=== PATIENT | male | born 1955 | race Caucasian/White ===

== ENCOUNTER 2016-07-20 13:03 | Outpatient (CLI) | payer OTHER | END 2016-07-20 13:04 | disposition home or self-care (01) | DX: G47.30 Sleep apnea, unspecified (principal); R06.83 Snoring ==

== ENCOUNTER 2016-08-24 19:34 | Outpatient (CLI) | payer OTHER | END 2016-08-24 19:35 | disposition home or self-care (01) | LOC: SC 19:34 | PROVIDERS: ATTEND Internal Medicine Pulmonary Disease | DX: G47.33 Obstructive sleep apnea (adult) (pediatric) (principal); G47.61 Periodic limb movement disorder; Z68.29 Body mass index [BMI] 29.0-29.9, adult | CPT/HCPCS: 95810 ==

== ENCOUNTER 2016-08-31 14:06 | Outpatient (CLI) | payer OTHER | END 2016-08-31 14:07 | disposition home or self-care (01) | LOC: SC 14:06 | PROVIDERS: ATTEND Nurse Practitioner Family | DX: G47.33 Obstructive sleep apnea (adult) (pediatric) (principal) | CPT/HCPCS: 99212; 99214 ==

== ENCOUNTER 2016-10-14 13:13 | Outpatient (CLI) | payer OTHER | END 2016-10-14 13:14 | disposition home or self-care (01) | LOC: SC 13:13 | PROVIDERS: ATTEND Nurse Practitioner Family | DX: G47.33 Obstructive sleep apnea (adult) (pediatric) (principal) | CPT/HCPCS: 99212; 99214 ==

== ENCOUNTER 2016-10-21 08:20 | Outpatient (CLI) | payer OTHER ==
[2016-10-21 13:34] LABS: BASOPHILS % (AUTO) 0.4 %; EOSINOPHILS # (AUTO) 0.1 10^3/uL (0.0-0.7); EOSINOPHILS % (AUTO) 1.4 %; HCT - HEMATOCRIT 43.3 % (42.0-52.0); HGB - HEMOGLOBIN 14.8 g/dL (14.0-18.0); LYMPHOCYTES # (AUTO) 1.7 10^3/uL (1.5-3.5); LYMPHOCYTES % (AUTO) 37.2 %; MEAN CORPUSCULAR HEMOGLOBIN 32.3 pg (27.0-31.0); MEAN CORPUSCULAR HGB CONC 34.2 g/dL (32.0-36.0); MEAN CORPUSCULAR VOLUME 94.5 fL (80.0-94.0); MONOCYTES # (AUTO) 0.4 10^3/uL (0.0-1.0); NEUTROPHILS # (AUTO) 2.4 10^3/uL (1.5-6.6); NUCLEATED RED BLOOD CELLS AUTO 0.1 /100WBC; RED BLOOD COUNT 4.59 10^6/uL (4.70-6.10); RED CELL DISTRIBUTION WIDTH 12.7 % (12.0-15.0); UNCORRECTED WHITE BLOOD COUNT 4.6 x10^3/uL; WHITE BLOOD COUNT 4.6 x10^3/uL (4.8-10.8)
[2016-10-21 14:01] LABS: ALBUMIN/GLOBULIN RATIO 1.8 (1.0-2.2); BILIRUBIN,TOTAL 0.8 mg/dL (0.2-1.0); BUN - BLOOD UREA NITROGEN 13 mg/dL (6-20); CALCIUM 9.2 mg/dL (8.5-10.3); CARBON DIOXIDE - CO2 30 mmol/L (21-32); CHLORIDE 100 mmol/L (101-111); CHOL/HDL RATIO 3.2 (<5.0); CHOLESTEROL 132 mg/dL; CREATININE 0.8 mg/dL (0.6-1.2); GFR - MDRD 98 (>89); GLUCOSE 97 mg/dL (70-100); HDL CHOLESTEROL 41 mg/dL; HEMOGLOBIN A1C 0.56 g/dL; LDL/HDL RATIO 1.5 (<3.6); POTASSIUM 3.9 mmol/L (3.5-5.0); SODIUM 135 mmol/L (135-145); TOTAL PROTEIN 7.3 g/dL (6.7-8.2); TRIGLYCERIDES 147 mg/dL; VLDL CHOLESTEROL 29 mg/dL
== END 2016-10-21 08:21 | disposition home or self-care (01) ==
LOC: LAB.R 08:20
PROVIDERS: ATTEND Nurse Practitioner Primary Care
DX: Z79.899 Other long term (current) drug therapy (principal); R73.09 Other abnormal glucose; C85.80 Other specified types of non-Hodgkin lymphoma, unspecified site; E78.1 Pure hyperglyceridemia
CPT/HCPCS: 80053; 80061; 83036; 84153; 85025

== ENCOUNTER 2017-01-04 13:15 | Outpatient (CLI) | payer OTHER | END 2017-01-04 13:16 | disposition home or self-care (01) | LOC: SC 13:15 | PROVIDERS: ATTEND Nurse Practitioner Family | DX: G47.33 Obstructive sleep apnea (adult) (pediatric) (principal) | CPT/HCPCS: 99212; 99214 ==

== ENCOUNTER 2017-07-26 15:15 | Outpatient (CLI) | payer OTHER | END 2017-07-26 15:16 | disposition home or self-care (01) | LOC: SC 15:15 | PROVIDERS: ATTEND Nurse Practitioner Family | DX: G47.33 Obstructive sleep apnea (adult) (pediatric) (principal) | CPT/HCPCS: 99212; 99213 ==

== ENCOUNTER 2017-10-26 09:05 | Outpatient (CLI) | payer OTHER ==
[2017-10-26 15:07] LABS: BASOPHILS % (AUTO) 0.2 %; EOSINOPHILS # (AUTO) 0.1 10^3/uL (0.0-0.7); EOSINOPHILS % (AUTO) 1.4 %; HGB - HEMOGLOBIN 14.6 g/dL (14.0-18.0); LYMPHOCYTES # (AUTO) 1.5 10^3/uL (1.5-3.5); LYMPHOCYTES % (AUTO) 38.2 %; MEAN CORPUSCULAR HEMOGLOBIN 32.3 pg (27.0-31.0); MEAN CORPUSCULAR HGB CONC 33.3 g/dL (32.0-36.0); MEAN CORPUSCULAR VOLUME 96.9 fL (80.0-94.0); MEAN PLATELET VOLUME 8.3 fL (7.4-11.4); MONOCYTES # (AUTO) 0.4 10^3/uL (0.0-1.0); NEUTROPHILS % (AUTO) 50.2 %; PLT - PLATELET COUNT 172 10^3/uL (130-450); RED BLOOD COUNT 4.53 10^6/uL (4.70-6.10); RED CELL DISTRIBUTION WIDTH 12.8 % (12.0-15.0)
[2017-10-26 15:23] LABS: ALBUMIN 4.4 g/dL (3.2-5.5); ALBUMIN/GLOBULIN RATIO 1.5 (1.0-2.2); ALKALINE PHOSPHATASE 73 IU/L (42-121); ALT ALANINE AMINOTRANSFERASE 28 IU/L (10-60); AST ASPARTATE AMINOTRANSFERASE 34 IU/L (10-42); BILIRUBIN,TOTAL 1.2 mg/dL (0.2-1.0); BUN - BLOOD UREA NITROGEN 14 mg/dL (6-20); CALCIUM 9.3 mg/dL (8.5-10.3); CARBON DIOXIDE - CO2 28 mmol/L (21-32); CHLORIDE 100 mmol/L (101-111); CHOL/HDL RATIO 2.2 (<5.0); CHOLESTEROL 111 mg/dL; CREATININE 0.9 mg/dL (0.6-1.2); GFR - MDRD 86 (>89); GLUCOSE 96 mg/dL (70-100); HDL CHOLESTEROL 51 mg/dL; LDL CHOLESTEROL,CALCULATED 47 mg/dL; LDL/HDL RATIO 0.9 (<3.6); SODIUM 137 mmol/L (135-145); TOTAL PROTEIN 7.4 g/dL (6.7-8.2); VLDL CHOLESTEROL 13 mg/dL
[2017-10-26 15:28] LABS: HB2 TOTAL 16.4 g/dL; HEMOGLOBIN A1C 0.58 g/dL; HEMOGLOBIN A1C % 5.4 % (4.6-6.2)
== END 2017-10-26 09:06 | disposition home or self-care (01) ==
LOC: LAB.R 09:05
PROVIDERS: ATTEND Nurse Practitioner Primary Care
DX: E78.1 Pure hyperglyceridemia (principal); R73.01 Impaired fasting glucose; K52.9 Noninfective gastroenteritis and colitis, unspecified; C85.90 Non-Hodgkin lymphoma, unspecified, unspecified site; Z13.29 Encounter for screening for other suspected endocrine disorder; Z79.899 Other long term (current) drug therapy
CPT/HCPCS: 80053; 80061; 83036; 83721; 84443; 85025

== ENCOUNTER 2017-11-01 08:00 | Outpatient (CLI) | payer OTHER | END 2017-11-01 08:01 | disposition home or self-care (01) | LOC: LAB.R 08:00 | PROVIDERS: ATTEND Nurse Practitioner Primary Care | DX: D75.89 Other specified diseases of blood and blood-forming organs (principal) | CPT/HCPCS: 82607; 82746 ==

== ENCOUNTER 2018-08-22 07:43 | Outpatient (CLI) | payer OTHER ==
[2018-08-22 08:04] LABS: BASOPHILS % (AUTO) 0.3 %; EOSINOPHILS # (AUTO) 0.1 10^3/uL (0.0-0.7); EOSINOPHILS % (AUTO) 1.6 %; HGB - HEMOGLOBIN 15.1 g/dL (14.0-18.0); LYMPHOCYTES # (AUTO) 1.7 10^3/uL (1.5-3.5); LYMPHOCYTES % (AUTO) 34.6 %; MEAN CORPUSCULAR HEMOGLOBIN 31.6 pg (27.0-31.0); MEAN CORPUSCULAR HGB CONC 33.2 g/dL (32.0-36.0); MEAN CORPUSCULAR VOLUME 95.2 fL (80.0-94.0); MEAN PLATELET VOLUME 7.6 fL (7.4-11.4); MONOCYTES # (AUTO) 0.4 10^3/uL (0.0-1.0); MONOCYTES % (AUTO) 7.9 %; NEUTROPHILS # (AUTO) 2.7 10^3/uL (1.5-6.6); NEUTROPHILS % (AUTO) 55.6 %; PLT - PLATELET COUNT 170 10^3/uL (130-450); RED BLOOD COUNT 4.77 10^6/uL (4.70-6.10); RED CELL DISTRIBUTION WIDTH 12.6 % (12.0-15.0); WHITE BLOOD COUNT 4.8 x10^3/uL (4.8-10.8)
[2018-08-22 08:19] LABS: ALBUMIN 4.5 g/dL (3.2-5.5); ALBUMIN/GLOBULIN RATIO 1.6 (1.0-2.2); ALKALINE PHOSPHATASE 82 IU/L (42-121); ALT ALANINE AMINOTRANSFERASE 32 IU/L (10-60); AST ASPARTATE AMINOTRANSFERASE 32 IU/L (10-42); BILIRUBIN,TOTAL 1.1 mg/dL (0.2-1.0); BUN - BLOOD UREA NITROGEN 13 mg/dL (6-20); CALCIUM 9.2 mg/dL (8.5-10.3); CARBON DIOXIDE - CO2 29 mmol/L (21-32); CHLORIDE 98 mmol/L (101-111); CHOL/HDL RATIO 3.5 (<5.0); CHOLESTEROL 135 mg/dL; CREATININE 0.8 mg/dL (0.6-1.2); GFR - MDRD 98 (>89); GLUCOSE 113 mg/dL (70-100); HDL CHOLESTEROL 39 mg/dL; LDL CHOLESTEROL,CALCULATED 73 mg/dL; LDL/HDL RATIO 1.9 (<3.6); SODIUM 138 mmol/L (135-145); TOTAL PROTEIN 7.4 g/dL (6.7-8.2); VLDL CHOLESTEROL 23 mg/dL
== END 2018-08-22 07:44 | disposition home or self-care (01) ==
LOC: LAB 07:43
PROVIDERS: ATTEND Internal Medicine
DX: Z00.00 Encounter for general adult medical examination without abnormal findings (principal); E78.5 Hyperlipidemia, unspecified; Z12.5 Encounter for screening for malignant neoplasm of prostate
CPT/HCPCS: 36415; 80053; 80061; 83721; 84153; 84443; 85025

== ENCOUNTER 2018-09-19 11:14 | Outpatient (CLI) | payer OTHER | END 2018-09-19 11:15 | disposition home or self-care (01) | LOC: SC 11:14 | PROVIDERS: ATTEND Nurse Practitioner Family | DX: G47.33 Obstructive sleep apnea (adult) (pediatric) (principal) | CPT/HCPCS: 99212; 99213 ==

== ENCOUNTER 2020-04-09 09:00 | Outpatient (CLI) | payer MEDICARE, BC ==
[2020-04-09 09:16] LABS: BASOPHILS % (AUTO) 0.4 %; EOSINOPHILS # (AUTO) 0.1 10^3/uL (0.0-0.7); EOSINOPHILS % (AUTO) 1.4 %; HGB - HEMOGLOBIN 15.5 g/dL (14.0-18.0); LYMPHOCYTES # (AUTO) 2.1 10^3/uL (1.5-3.5); LYMPHOCYTES % (AUTO) 41.4 %; MEAN CORPUSCULAR HEMOGLOBIN 32.8 pg (27.0-31.0); MEAN CORPUSCULAR HGB CONC 33.1 g/dL (32.0-36.0); MEAN CORPUSCULAR VOLUME 99.2 fL (80.0-94.0); MEAN PLATELET VOLUME 9.2 fL (7.4-11.4); MONOCYTES # (AUTO) 0.4 10^3/uL (0.0-1.0); MONOCYTES % (AUTO) 8.7 %; NEUTROPHILS # (AUTO) 2.4 10^3/uL (1.5-6.6); NEUTROPHILS % (AUTO) 47.9 %; PLT - PLATELET COUNT 179 10^3/uL (130-450); RED BLOOD COUNT 4.72 10^6/uL (4.70-6.10); WHITE BLOOD COUNT 5.1 x10^3/uL (4.8-10.8)
[2020-04-09 09:35] LABS: ALBUMIN 4.9 g/dL (3.2-5.5); ALBUMIN/GLOBULIN RATIO 1.9 (1.0-2.2); ALKALINE PHOSPHATASE 84 IU/L (42-121); ALT ALANINE AMINOTRANSFERASE 31 IU/L (10-60); AST ASPARTATE AMINOTRANSFERASE 28 IU/L (10-42); BILIRUBIN,TOTAL 1.1 mg/dL (0.2-1.0); BUN - BLOOD UREA NITROGEN 13 mg/dL (6-20); CALCIUM 9.4 mg/dL (8.5-10.3); CARBON DIOXIDE - CO2 28 mmol/L (21-32); CHLORIDE 102 mmol/L (101-111); CHOL/HDL RATIO 3.3 (<5.0); CHOLESTEROL 150 mg/dL; CREATININE 0.8 mg/dL (0.6-1.2); GLUCOSE 114 mg/dL (70-100); HDL CHOLESTEROL 46 mg/dL; LDL CHOLESTEROL,CALCULATED 78 mg/dL; LDL/HDL RATIO 1.7 (<3.6); SODIUM 137 mmol/L (135-145); TOTAL PROTEIN 7.5 g/dL (6.7-8.2); VLDL CHOLESTEROL 26 mg/dL
== END 2020-04-09 09:01 | disposition home or self-care (01) ==
LOC: LAB 09:00
PROVIDERS: ATTEND Family Medicine
DX: I10 Essential (primary) hypertension (principal); N40.0 Benign prostatic hyperplasia without lower urinary tract symptoms; E78.5 Hyperlipidemia, unspecified; G47.33 Obstructive sleep apnea (adult) (pediatric); R73.01 Impaired fasting glucose
CPT/HCPCS: 36415; 80053; 80061; 83721; 84153; 84443; 85025

== ENCOUNTER 2020-06-06 09:24 | Outpatient (CLI) | payer MEDICARE, BC ==
[2020-06-06 12:51] LABS: BILIRUBIN,URINE NEGATIVE (NEGATIVE); GLUCOSE, URINE (UA) NEGATIVE (NEGATIVE); KETONES,URINE (UA) NEGATIVE (NEGATIVE); LEUKOCYTE ESTERASE, URINE NEGATIVE (NEGATIVE); NITRITE,URINE NEGATIVE (NEGATIVE); OCCULT BLOOD,URINE SMALL (NEGATIVE); PROTEIN,URINE NEGATIVE (NEGATIVE); UROBILINOGEN,URINE 0.2 (NORMAL) E.U./dL (NORMAL)
[2020-06-06 12:54] LABS: BACTERIA,URINE None Seen /HPF (None Seen); CLARITY,URINE CLEAR (CLEAR); SQUAMOUS EPITHELIAL CELL,UR RARE Squamous (<= Few); WBC,URINE 0-3 /HPF (0-3)
== END 2020-06-06 23:59 | disposition home or self-care (01) ==
LOC: LAB.WCP 09:24
PROVIDERS: ATTEND Family Medicine
DX: R31.9 Hematuria, unspecified (principal); D75.89 Other specified diseases of blood and blood-forming organs; Z86.39 Personal history of other endocrine, nutritional and metabolic disease
CPT/HCPCS: 36415; 81001; 82306; 82607; 82746; 87086

== ENCOUNTER 2020-06-14 16:30 | Outpatient (CLI) | payer MEDICARE, BC ==
--- NOTE | 2020-06-14 17:54 | XRAY Report ---
PROCEDURE: Thoracic Spine 2 View INDICATIONS: BACK PAIN X 3 MONTHS TECHNIQUE: 3 views of the thoracic spine were acquired. COMPARISON: None. FINDINGS: Bones: No fractures or dislocations. No suspicious bony lesions. Visualized ribs are intact. Multil evel disc space narrowing and endplate osteophyte formation is present. Soft tissues: No paravertebr al stripe thickening. IMPRESSION: Multilevel degenerative disc disease. No acute fracture. No osseous lesion. If symptoms and/or clinic al suspicion for pathology continue, further assessment with repeat plain films, or advanced imaging (e.g., CT, MRI, or bone scan) is recommended for further assessment. Reviewed by: Ruy Ingram MD on 06/14/2020 4:52 PM [facility] Approved by: Ruy Ingram MD on 06/14/2020 4:52 PM [facility] Station ID: [id number]
--- NOTE | 2020-06-14 17:56 | Ultrasound Report ---
PROCEDURE: Retroperitoneal INDICATIONS: HEMATURIA TECHNIQUE: Real-time scanning was performed of the retroperitoneal organs, with image documentation. COMPARISON: None. FINDINGS: Right kidney measures 11.3 cm with a renal cortical thickness of 12 mm. Left kidney measures 12.9 cm in length with a renal cortical thickness of 14 mm. No hydronephrosis. Prevoid volume of the urinary bladder is 133 cc. 0 postvoid residual. Prostate is enlarged measuring 43 mm. IMPRESSION: 1. No hydronephrosis. 2. Prostate enlargement. Recommend correlation with PSA values. Reviewed by: Ruy Ingram MD on 06/14/2020 4:55 PM [facility] Approved by: Ruy Ingram MD on 06/14/2020 4:55 PM [facility] Station ID: [id number]
--- NOTE | 2020-06-14 17:57 | XRAY Report ---
PROCEDURE: Lumbar Spine 2 View INDICATIONS: BACK PAIN X 3 MONTHS TECHNIQUE: 2 views of the lumbar spine were acquired. COMPARISON: None. FINDINGS: Bones: 5 [id number] vertebrae are present. There is normal bony alignment. No vertebral body compression fractures. No suspicious bony lesions. Mild multilevel endplate osteophyte formation an d facet hypertrophy throughout the mid and lower lumbar spine. Soft tissues: Overlying bowel gas pattern is normal. No suspicious soft tissue calcifications. IMPRESSION: Degenerative disc and facet disease. No acute fracture. No osseous lesion. If symptoms a nd/or clinical suspicion for pathology continue, further assessment with repeat plain films, or advan jw imaging (e.g., CT, MRI, or bone scan) is recommended for further assessment. Reviewed by: Ruy Ingram MD on 06/14/2020 4:55 PM [facility] Approved by: Ruy Ingram MD on 06/14/2020 4:55 PM [facility] Station ID: [id number]
== END 2020-06-14 16:31 | disposition home or self-care (01) ==
LOC: DI 16:30
PROVIDERS: ATTEND Family Medicine
DX: R31.9 Hematuria, unspecified (principal); N40.0 Benign prostatic hyperplasia without lower urinary tract symptoms; M51.34 Other intervertebral disc degeneration, thoracic region; M47.816 Spondylosis without myelopathy or radiculopathy, lumbar region; M51.36 Other intervertebral disc degeneration, lumbar region

== ENCOUNTER 2020-06-25 07:48 | Outpatient (CLI) | payer MEDICARE, BC ==
[2020-06-25] MEDS ORDERED: IOVERSOL 320 100 ML VIAL IVP ONE ×2 (08:04→09:02)
[2020-06-25 08:17] LABS: CREATININE 0.8 mg/dL (0.6-1.2)
--- NOTE | 2020-06-25 15:06 | CT Report ---
PROCEDURE: IVP INDICATIONS: GROSS HEMATURIA, CHRONIC R FLANK PAIN CONTRAST: IV CONTRAST: Optiray 320 ml: 140 PO CONTRAST: *NO PO CONTRAST TECHNIQUE: After the administration of intravenous contrast, 5 mm thick sections acquired from the diaphragms to the symphysis. 5 mm thick coronal and sagittal reformats were acquired. For radiation dose reducti on, the following was used: automated exposure control, adjustment of mA and/or kV according to remi ent size. COMPARISON: None. FINDINGS: Image quality: Excellent. Lung bases: Lung bases demonstrate mild atelectatic change.. Heart size is normal. Urinary system: Both kidneys are normal in size and enhancement. Contrast-filled renal calyces are normal in morphology. Contrast filled portions of both ureters are normal in caliber. Bladder wall thickness is normal. Solid organs: Liver and spleen are normal in size and enhancement. Gallbladder contains a nonobstru cting punctate calcification in the neck/proximal cystic duct measuring about 3 mm. Gallbladder is ot herwise decompressed. Biliary system is non dilated. Pancreas enhances normally. No adrenal nodule s. Peritoneum and bowel: Slight, nonspecific wall thickening of the cecum. There are a few immediately retrocecal mildly prominent lymph nodes. Bowel loops demonstrate otherwise normal wall thickness and caliber. No free fluid or air. Nodes and vessels: No retroperitoneal or mesenteric adenopathy by size criteria. Aorta and inferior vena cava are normal in size. Abdominal wall: No ventral hernias. Pelvis: No pathologic free pelvic fluid. No inguinal hernias or adenopathy. Minimally enlarged pro state gland. Bones: No suspicious bony lesions. No vertebral body compression fractures. IMPRESSION: 1. No CT evidence of urinary calcifications or obstructive uropathy. 2. Nonobstructive cholelithiasis. 3. Nonspecific cecal wall thickening with adjacent adenopathy. This may be sequelae of infection, inf lammation, less likely neoplasm. Consider colonoscopy if not recently performed. Reviewed by: Anu Pickering MD on 06/25/2020 3:05 PM PST Approved by: Anu Pickering MD on 06/25/2020 3:05 PM PST Station ID: [id number]
== END 2020-06-25 07:49 | disposition home or self-care (01) ==
LOC: DI 07:48
PROVIDERS: ATTEND Family Medicine
DX: R31.0 Gross hematuria (principal); R10.9 Unspecified abdominal pain; G89.29 Other chronic pain; K80.20 Calculus of gallbladder without cholecystitis without obstruction
CPT/HCPCS: 36415; 74178; 82565; 84520; Q9967

== ENCOUNTER 2020-10-31 13:13 | Outpatient (CLI) | payer MEDICARE, BC ==
--- NOTE | 2020-10-31 13:44 | SLEEP CARE CONSULTATION ---
Information from patient questionnaire entered by Jennifer Hyatt. I have reviewed and concur with the information entered by Jennifer Hyatt. This document represents the service I personally performed and the decisions made by , Lakshmi Black ARNP. History of Present Illness Service Date and Time: 10/31/2020 1313 Previous diagnosis: Moderate, Obstructive Sleep Apnea-Hypopnea Syndrome AHI: 28.6 (in 2017) Reason for follow up: other (11 month, CPAP recall concerns) Equipment type: CPAP Equipment obtained from: [facility] (getting supplies as needed) Mask style: Full face Backup mask available: Yes (old mask) Last cushion change: 60 days Prior sleep studies: Yes Year and Where: 2017 - [facility] Sleep HPI additional information: SUSIE FELIZ was diagnosed to have moderate, AHI 28.6, obstructive sleep apnea- hypopnea syndrome and returned today for CPAP therapy 11 month, CPAP recall concerns follow-up. CPAP Compliance Data - Data Reviewed with Patient Average duration of nightly device use: 7 hr 57 min Compliance rate %: 98.9 (180 days) Current pressure setting (cmH2O): 10 Humidity settin Heated hose settin Average residual AHI: 1.6 Average large leak: 2 min 11 sec Subjective Missed days of use due to: reports: other (product recall) Patient concerns: denies: aerophagia, mask discomfort, air blowing in eyes, mask leak noise, condensation in mask/hose, nasal congestion, dry mouth, nose, throat, epistaxis, other Observed to snore while using device: No Current pressure setting perceived as: comfortable On therapy, patient: reports: sleeping better, awakening more refreshed, being more awake and alert during the day, more rested overall. denies: drowsiness while driving Initial [place] Sleepiness Scale score: 8 (in 2017) Current [place] Sleepiness Scale score: 4 Allergies and Home Medications Home medication list reviewed: Yes (Mesalamine 800 mg 3x daily) Review of Systems Review of systems same as previous: Yes (no changes) Physical Exam Heart Rate: 82 O2 Saturation: 96 Height: 6 ft 5 in Weight: 252 lb Body Mass Index: 29.9 BMI Classification: Overweight Impression and Plan 1. Obstructive Sleep Apnea-Hypopnea Syndrome, moderate, with good treatment compliance and good apnea control. On CPAP therapy, the patient has better sleep quality and is more rested overall. Patient came in with concerns over the [employer] recall. I reviewed with patient that they do recommend you stop using rinsing if you notice any particulates in the machine. He voiced that he has not seen any black particles in the machine or noticed any unusual odors. He did stop using his machine until he was able to talk to someone about should he use it or not. I reviewed that the risks using and not using his machine is something he has to weigh and decide. I informed patient that he can get an inline filter to use to reduce possible particles being blown through the system. He voiced understanding and says he will look into these. Patient was satisfied with the information and guidance I was able to give him. He is eligible to update his device next year 2021. Patient's apnea severity and rationale for treatment to reduce apnea, improve sleep quality and reduce cardiovascular and cerebrovascular events was reviewed. I also reviewed the benefit of consistent device use of CPAP for hypertension. * Continue autoCPAP pressure at 10 cmH2O * Patient to obtain and try inline filter on machine on recall * Notify me if snoring with mask or feeling that the pressure is too much or too little * Attempt to lose weight * Call this office if any problems using CPAP * Return for follow up in 1 year, or sooner if concerns arise Counseling Topics: Spare mask, Weight loss health impact Visit Type: In Office Time Spent with Patient (minutes): 20 Provider Statement: I spent 100% of the Face to Face Visit with the patient with greater than 50% spent counseling the patient and coordination of care.
== END 2020-10-31 13:14 | disposition home or self-care (01) ==
LOC: SC 13:13
PROVIDERS: ATTEND Nurse Practitioner Family
DX: G47.33 Obstructive sleep apnea (adult) (pediatric) (principal)
CPT/HCPCS: 99213; G0463; 99212

== ENCOUNTER 2021-05-13 09:35 | Outpatient (CLI) | payer MEDICARE, BC ==
[2021-05-13 09:55] LABS: BASOPHILS % (AUTO) 0.4 %; EOSINOPHILS # (AUTO) 0.1 10^3/uL (0.0-0.7); HCT - HEMATOCRIT 45.5 % (42.0-52.0); HGB - HEMOGLOBIN 15.3 g/dL (14.0-18.0); MEAN CORPUSCULAR HEMOGLOBIN 32.1 pg (27.0-31.0); MEAN CORPUSCULAR HGB CONC 33.6 g/dL (32.0-36.0); MEAN CORPUSCULAR VOLUME 95.6 fL (80.0-94.0); MEAN PLATELET VOLUME 9.2 fL (7.4-11.4); MONOCYTES # (AUTO) 0.4 10^3/uL (0.0-1.0); MONOCYTES % (AUTO) 8.9 %; NEUTROPHILS # (AUTO) 2.4 10^3/uL (1.5-6.6); NEUTROPHILS % (AUTO) 48.5 %; PLT - PLATELET COUNT 184 10^3/uL (130-450); RED BLOOD COUNT 4.76 10^6/uL (4.70-6.10); RED CELL DISTRIBUTION WIDTH 11.9 % (12.0-15.0); WHITE BLOOD COUNT 4.9 x10^3/uL (4.8-10.8)
[2021-05-13 10:25] LABS: ALBUMIN 4.8 g/dL (3.2-5.5); ALBUMIN/GLOBULIN RATIO 1.8 (1.0-2.2); ALKALINE PHOSPHATASE 77 IU/L (42-121); ALT ALANINE AMINOTRANSFERASE 27 IU/L (10-60); AST ASPARTATE AMINOTRANSFERASE 27 IU/L (10-42); BILIRUBIN,TOTAL 0.8 mg/dL (0.2-1.0); BUN - BLOOD UREA NITROGEN 15 mg/dL (6-20); CALCIUM 9.1 mg/dL (8.5-10.3); CARBON DIOXIDE - CO2 29 mmol/L (21-32); CHLORIDE 100 mmol/L (101-111); CHOL/HDL RATIO 3.1 (<5.0); CHOLESTEROL 159 mg/dL; CREATININE 0.8 mg/dL (0.6-1.2); GFR - MDRD 97 (>89); GLUCOSE 115 mg/dL (70-100); HDL CHOLESTEROL 51 mg/dL; LDL CHOLESTEROL,CALCULATED 83 mg/dL; LDL/HDL RATIO 1.6 (<3.6); POTASSIUM 4.1 mmol/L (3.5-5.0); SODIUM 136 mmol/L (135-145); TOTAL PROTEIN 7.5 g/dL (6.7-8.2); TRIGLYCERIDES 124 mg/dL; VLDL CHOLESTEROL 25 mg/dL
[2021-05-13 10:28] LABS: THYROID STIMULATING HORMONE 2.32 uIU/mL (0.34-5.60)
[2021-05-13 10:43] LABS: ESTIMATED AVERAGE GLUCOSE 123 mg/dL (70-100); HEMOGLOBIN A1c% 5.9 % (4.27-6.07)
== END 2021-05-13 09:36 | disposition home or self-care (01) ==
LOC: LAB 09:35
PROVIDERS: ATTEND Family Medicine
DX: K52.9 Noninfective gastroenteritis and colitis, unspecified (principal); I10 Essential (primary) hypertension; E78.5 Hyperlipidemia, unspecified; G47.33 Obstructive sleep apnea (adult) (pediatric); R73.01 Impaired fasting glucose
CPT/HCPCS: 36415; 80053; 80061; 83036; 83721; 84443; 85025

== ENCOUNTER 2022-03-14 15:33 | Emergency (ER) | payer MEDICARE, BC ==
--- NOTE | 2022-03-14 16:14 | XRAY Report ---
PROCEDURE: Elbow 2 View LT INDICATIONS: Trauma TECHNIQUE: 2 views of the elbow were acquired. COMPARISON: None FINDINGS: Bones: Elbow dislocation is seen, with the radial head dislocated posteriorly to the distal humerus. On the lateral view, there is a small fracture fragment seen measuring 2 mm. Soft tissues: Soft tissue swelling is seen. IMPRESSION: Elbow dislocation, with the radial head dislocated posteriorly to the distal humerus. A 2 mm avulsion fracture fragment is seen. If it would be helpful for clinical management decision making, please consider a dedicated elbow CT for further evaluation. Reviewed by: Bernardino Lino MD on 03/14/2022 3:[address] [facility] Approved by: Bernardino iLno MD on 03/14/2022 3:[address] [facility] Station ID: [id number]
[2022-03-14] MEDS: MORPHINE 2 MG/ML CARPUJECT IVP STA (16:56)
[2022-03-14] MEDS: PROPOFOL 200 MG/20 ML VIAL IVP STA (17:13)
--- NOTE | 2022-03-14 17:38 | ED Physician Documentation ---
PD HPI UPPER EXT INJURY - Stated complaint Stated Complaint: LT ARM INJ/PX - Chief complaint Chief Complaint: Trauma Ext - History obtained from History obtained from: Patient - History of Present Illness Location: Left, Elbow Type of injury: Fall - Additonal information Additional information: This is a very pleasant 66-year-old gentleman with a past medical history of hypertension and hyper lipidemia who presented with left elbow pain after a slip and fall. The patient was coming down off of a ladder and had about 3 steps left when his foot got caught and he fell down onto the left elbow. He denies any other injuries, did not hit head and had notes of consciousness, no neck or back pain, no pelvis pain no other extremity pain other than the left elbow. He has not been to flex or extend the elbow due to pain and has noted swelling around the left elbow joint. The patient is left-handed. Review of Systems Ten Systems: 10 systems reviewed and negative (Except as noted in HPI) PD PAST MEDICAL HISTORY - Past Medical History Past Medical History: Yes Cardiovascular: Hypertension, High cholesterol Respiratory: None Endocrine/Autoimmune: None GI: Ulcers, Colon polyps : None HEENT: Other Psych: None Musculoskeletal: None Derm: Psoriasis - Past Surgical History Past Surgical History: Yes HEENT: Cataracts - Present Medications Home Medications: Ambulatory Orders Medication Instructions Recorded Confirmed Atorvastatin Calcium 10 mg PO DAILY 01/27/16 01/27/16 lisinopriL [Lisinopril] 2.5 mg PO DAILY 01/27/16 01/27/16 HYDROcod/ACETAM 5/325 [[place] 5/325] 1 - 2 tablet PO Q6H PRN #14 tablet 03/14/22 - Allergies Allergies/Adverse Reactions: Allergies Allergy/AdvReac Type Severity Reaction Status Date / Time No Known Drug Allergies Allergy Verified 03/14/22 15:42 - Social History Does the pt smoke?: No Smoking Status: Never smoker Does the pt drink ETOH?: Yes Does the pt have substance abuse?: No PD ED PE NORMAL - Vitals Vital signs reviewed: Yes - General General: Alert and oriented X 3, No acute distress, Well developed/nourished - HEENT HEENT: Atraumatic, Moist mucous membranes, Pharynx benign - Neck Neck: Supple, no meningeal sign, No JVD - Cardiac Cardiac: RRR, No murmur - Respiratory Respiratory: No respiratory distress, Clear bilaterally - Abdomen Abdomen: Soft, Non tender, Non distended - Derm Derm: Normal color, Warm and dry - Extremities Extremities: Other (There is obvious left elbow deformity with diffuse swelling around the left elbow joint, no pain with palpation of the proximal humerus, shoulder, forearm, wrist, hand. 2+ radial pulses, normal sensation and range of motion distal to the injury.No other extremity injuries) Results - Vitals Vitals: Vital Signs - 24 hr 03/14/22 15:40 Temperature 36.3 C L Heart Rate 62 Respiratory 16 Rate Blood Pressure 132/71 H O2 Saturation 97 Oxygen O2 Source Room air Procedures - Reduction Body part reduced: Left, Elbow Fracture or dislocation: Fracture dislocation Anesthesia: Other (Morphine 4 mg IV for pain control and a total of 80 mg of propofol for sedation) Elbow reduction technique: Other (Distal traction and supination with radial head manipulation.) Reduction aftercare: NV intact, Xray confirms reduction, Alignment improved, Splint applied, Sling, Patient tolerated well PD MEDICAL DECISION MAKING - ED course Complexity details: reviewed results, re-evaluated patient, considered differential, d/w patient ED course: This is a 66-year-old male who fell off a ladder as noted per HPI. He sustained a left elbow dislocation with a small avulsion fracture fragment. CMS remained intact. The patient was consented for elbow reduction under procedural sedation. He was mallapati class 1 and ASA class 1. Reduction was done together w/ Dr. [place]. Patient received an initial 60mg of IV propofol but required an additional 20mg for adequate sedation. We were able to reduce the elbow with a combination of distal traction, supination and radial head manipulation. We were able to achieve elbow reduction and he was placed in a splint and sling, post reductions of films show improved alignment and patient notes improved pain. Post reduction CMS intact. Patient was advised to follow-up with orthopedic surgery as to help patient in the next week or so and in the meantime can continue supportive measures including cool compresses, ibuprofen and Tylenol for pain, splint and sling. He was given [place] for breakthrough pain only. Departure - Departure Disposition: 01 Home, Self Care Clinical Impression: Dislocation of left elbow Qualifiers: Encounter type: initial encounter Qualified Code(s): S53.105A - Unspecified dislocation of left ulnohumeral joint, initial encounter Condition: Good Instructions: ED Dislocated Elbow Follow-Up: Gigi Butt MD [Provider Admit Priv/Credential] - Prescriptions: HYDROcod/ACETAM 5/325 [[place] 5/325] 1 - 2 tablet PO Q6H PRN #14 tablet PRN Reason: Pain Comments: You sustained a dislocation of the left elbow with a small avulsion fracture fragment. We will able to reduce the elbow and 9 at the joint here in the ER. He will need to keep it in a splint and sling until you follow-up with the orthopedic surgeon or your primary doctor. I have listed an orthopedic surgeon below who you may call tomorrow to schedule follow-up appointment in the next week or so. Please use a cool compress to help with pain and swelling and you may take ibuprofen or Tylenol for pain. I have also given you hydrocodone which is a narcotic pain medication and should only be used if pain is not well managed otherwise.
--- NOTE | 2022-03-14 17:51 | XRAY Report ---
PROCEDURE: Elbow 2 View LT INDICATIONS: post reduction elbow TECHNIQUE: 2 views of the elbow were acquired. COMPARISON: Earlier in the day on 03/14/2022. FINDINGS: Bones: The previously seen dislocation has been reduced. Tiny avulsion fracture fragments are seen, which are attributed to the coronoid process of the proxim al ulna. No suspicious bony lesions. Soft tissues: Soft tissue swelling is seen. There is an elbow joint effusion. IMPRESSION: Interval relocation. Small avulsion fractures are seen, likely related to the coronoid process of the proximal ulna. Soft tissue swelling and joint effusion can be seen. Reviewed by: Bernardino Lino MD on 03/14/2022 4:50 PM [facility] Approved by: Bernardino Lino MD on 03/14/2022 4:50 PM [facility] Station ID: [id number]
[2022-03-14 18:20] VITALS: BP 168/90
== END 2022-03-14 18:20 | disposition home or self-care (01) ==
LOC: ED 15:33
DX: S52.002A Unspecified fracture of upper end of left ulna, initial encounter for closed fracture (principal); W11.XXXA Fall on and from ladder, initial encounter; I10 Essential (primary) hypertension; E78.5 Hyperlipidemia, unspecified
CPT/HCPCS: 24600; 94770; 99152; 99282

== ENCOUNTER 2022-03-18 08:00 | Outpatient (CLI) | payer MEDICARE, BC ==
--- NOTE | 2022-03-18 11:25 | XRAY Report ---
PROCEDURE: Elbow 3 View LT INDICATIONS: LEFT ELBOW DISLOCATION TECHNIQUE: 4 views of the elbow were acquired. COMPARISON: None FINDINGS: Bones: Osseous densities seen medial and lateral to the joint are unchanged. No suspicious bony lesi ons. Soft tissues: Anterior fat pad sign is seen consistent with joint effusion and recent dislocation. N o suspicious soft tissue calcifications. IMPRESSION: 1. Previously described possible avulsion fractures are unchanged. 2. Persistent joint effusion consistent with recent dislocation. Reviewed by: Timothy Mcarthur on 03/18/2022 11:24 AM [facility] Approved by: Timothy Mcarthur on 03/18/2022 11:24 AM [facility] Station ID: [id number]
== END 2022-03-18 23:59 | disposition home or self-care (01) ==
LOC: DI.WOS 08:00
PROVIDERS: ATTEND Orthopaedic Surgery
DX: M25.522 Pain in left elbow (principal); M25.422 Effusion, left elbow

== ENCOUNTER 2022-04-26 15:33 | Outpatient (CLI) | payer MEDICARE, BC ==
--- NOTE | 2022-04-26 18:12 | XRAY Report ---
PROCEDURE: Elbow 3 View LT INDICATIONS: LEFT ELBOW DISLOCATION TECHNIQUE: 3 views of the elbow were acquired. COMPARISON: 03/18/2022 FINDINGS: Bones: Small rounded ossific density lateral to the joint space is again noted. Medial density on timothy ntified on the current exam Soft tissues: Persistent joint effusion elevates anterior humeral fat pad. IMPRESSION: 1. Persistent joint effusion and small rounded ossific density lateral to the joint space. Consider f ollow-up MRI if clinical concern persists Reviewed by: Pedro Grullon MD on 04/26/2022 5:11 PM [facility] Approved by: Pedro Grullon MD on 04/26/2022 5:11 PM [facility] Station ID: [id number]
== END 2022-04-26 15:34 | disposition home or self-care (01) ==
LOC: DI.WOS 15:33
PROVIDERS: ATTEND Physician Assistant Surgical
DX: M25.422 Effusion, left elbow (principal)

== ENCOUNTER 2022-05-24 12:42 | Outpatient (CLI) | payer MEDICARE, BC ==
--- NOTE | 2022-05-24 13:50 | XRAY Report ---
PROCEDURE: Elbow 3 View LT INDICATIONS: LEFT ELBOW DISLOCATION TECHNIQUE: 3 views of the elbow were acquired. COMPARISON: X-ray elbow 04/26/2021, 03/14/2022 FINDINGS: Bones: Ossific densities medial and lateral to the joint remain unchanged. Alignment is unchanged. Soft tissues: There is persistent appearance of effusion although minimally less prominent. No suspic ious soft tissue calcifications. IMPRESSION: Persistent appearance of ossific densities suggestive of avulsion fractures. Effusion remains present although decreased compared to prior exam. Reviewed by: Lois Gama MD on 05/24/2022 1:48 PM PST Approved by: Lois Gama MD on 05/24/2022 1:48 PM PST Station ID: [id number]
== END 2022-05-24 12:43 | disposition home or self-care (01) ==
LOC: DI.WOS 12:42
PROVIDERS: ATTEND Orthopaedic Surgery
DX: M25.422 Effusion, left elbow (principal)

== ENCOUNTER 2022-07-01 08:44 | Outpatient (CLI) | payer MEDICARE, BC ==
[2022-07-01 09:10] LABS: BASOPHILS % (AUTO) 0.5 %; EOSINOPHILS # (AUTO) 0.1 10^3/uL (0.0-0.7); EOSINOPHILS % (AUTO) 1.1 %; HCT - HEMATOCRIT 44.6 % (42.0-52.0); HGB - HEMOGLOBIN 14.5 g/dL (14.0-18.0); LYMPHOCYTES # (AUTO) 1.2 10^3/uL (1.5-3.5); MEAN CORPUSCULAR HEMOGLOBIN 31.3 pg (27.0-31.0); MEAN CORPUSCULAR HGB CONC 32.5 g/dL (32.0-36.0); MEAN CORPUSCULAR VOLUME 96.3 fL (80.0-94.0); MONOCYTES # (AUTO) 0.5 10^3/uL (0.0-1.0); MONOCYTES % (AUTO) 12.4 %; NEUTROPHILS # (AUTO) 2.5 10^3/uL (1.5-6.6); NEUTROPHILS % (AUTO) 57.8 %; PLT - PLATELET COUNT 178 10^3/uL (130-450); RED BLOOD COUNT 4.63 10^6/uL (4.70-6.10); RED CELL DISTRIBUTION WIDTH 12.2 % (12.0-15.0); WHITE BLOOD COUNT 4.4 x10^3/uL (4.8-10.8)
[2022-07-01 09:33] LABS: ALBUMIN 4.3 g/dL (3.2-5.5); ALBUMIN/GLOBULIN RATIO 1.5 (1.0-2.2); ALKALINE PHOSPHATASE 82 IU/L (42-121); ALT ALANINE AMINOTRANSFERASE 26 IU/L (10-60); AST ASPARTATE AMINOTRANSFERASE 25 IU/L (10-42); BILIRUBIN,TOTAL 1.1 mg/dL (0.2-1.0); BUN - BLOOD UREA NITROGEN 15 mg/dL (6-20); CALCIUM 9.4 mg/dL (8.5-10.3); CARBON DIOXIDE - CO2 28 mmol/L (21-32); CHLORIDE 103 mmol/L (101-111); CHOL/HDL RATIO 2.8 (<5.0); CHOLESTEROL 125 mg/dL; CREATININE 0.8 mg/dL (0.6-1.2); GFR - MDRD 96 (>89); GLUCOSE 119 mg/dL (70-100); HDL CHOLESTEROL 45 mg/dL; LDL CHOLESTEROL,CALCULATED 59 mg/dL; LDL/HDL RATIO 1.3 (<3.6); POTASSIUM 4.1 mmol/L (3.5-5.0); SODIUM 139 mmol/L (135-145); TOTAL PROTEIN 7.1 g/dL (6.7-8.2); TRIGLYCERIDES 107 mg/dL; VLDL CHOLESTEROL 21 mg/dL
[2022-07-01 10:02] LABS: ESTIMATED AVERAGE GLUCOSE 117 mg/dL (70-100); HEMOGLOBIN A1c% 5.7 % (4.27-6.07)
== END 2022-07-01 08:45 | disposition home or self-care (01) ==
LOC: LAB 08:44
PROVIDERS: ATTEND Family Medicine
DX: I10 Essential (primary) hypertension (principal); E78.5 Hyperlipidemia, unspecified; R73.01 Impaired fasting glucose
CPT/HCPCS: 36415; 80053; 80061; 83036; 83721; 85025

== ENCOUNTER 2022-12-01 09:22 | Outpatient (CLI) | payer MEDICARE, BC ==
--- NOTE | 2022-12-01 09:50 | Sleep Patient Instructions ---
Sleep Center Visit Summary - Patient Visit Information Reason for Visit: Annual visit for PAP therapy - Patient Instructions Additional Instructions: You will continue with CPAP therapy with pressure set at 10 cmH2O. A supply prescription will be updated with your DME. We encourage you to continue to try to lose weight. Please follow up with the sleep care office in 1 year. - Clinic Information Contact: [facility] [address] [place] [address] [email or web address] T: [phone]
--- NOTE | 2022-12-01 09:54 | SLEEP CARE CONSULTATION ---
Information from patient questionnaire entered by Sweta Elias. I have reviewed and concur with the information entered by Sweta Elias. This document represents the service I personally performed and the decisions made by me, Lakshmi Black ARNP. History of Present Illness Service Date and Time: 12/01/2022921 Previous diagnosis: Moderate, Obstructive Sleep Apnea-Hypopnea Syndrome AHI: 28.6 (in 2017) Reason for follow up: annual (LAST SEEN 11/2021) Equipment type: CPAP (DREAMSTATION 2, s/u 08/2016) Equipment obtained from: [employer] (getting supplies as needed) Mask style: Full face Mask brand: Resmed (extra large cushion) Backup mask available: Yes (old mask) Last cushion change: 1 month Prior sleep studies: Yes Year and Where: 2016 - [facility] HPI additional information: SUSIE FELIZ was diagnosed to have moderate, AHI 28.6, obstructive sleep apnea- hypopnea syndrome and returned today for CPAP therapy annual follow-up. Sleep Study - Results Prior sleep studies: Yes Year and Where: 2017 - [facility] CPAP Compliance Data - Data Reviewed with Patient Average duration of nightly device use: 7 HRS 57 MIN 9 SECS Compliance rate %: 100 (06/01/22-11/27/22; 180/180 days used) Current pressure setting (cmH2O): 10 Average residual AHI: 2.1 Central apnea: 0.1 Obstructive apnea: 0.9 Hypopnea: 1.1 Average large leak: 42 secs Subjective Patient concerns: reports: dry mouth, nose, throat (occasional, sometimes the h umidifier will shut off on machine). denies: aerophagia, mask discomfort, air blowing in eyes, mask leak noise, condensation in mask/hose, nasal congestion, epistaxis Observed to snore while using device: No Current pressure setting perceived as: comfortable On therapy, patient: reports: sleeping better, awakening more refreshed, being more awake and alert during the day, more rested overall. denies: drowsiness while driving Initial [place] Sleepiness Scale score: 8 (in 2017) Current [place] Sleepiness Scale score: 4 (12/01/22) Allergies and Home Medications Known drug allergies: No Drug allergies reviewed: Yes Home medication list reviewed: Yes (no changes) Allergy and home medication list: Allergies No Known Drug Allergies Allergy (Verified 11/30/22 10:20) Review of Systems Review of systems same as previous: No (Deaf, left ear) Physical Exam Vital signs obtained and entered by: SWETA Milton MA Blood Pressure: 126/78 (LEFT ARM) Cuff size: regular Heart Rate: 74 O2 Saturation: 98 Height: 6 ft 5 in Weight: 259 lb 6.4 oz Body Mass Index: 30.7 BMI Classification: Obese Impression and Plan 1. Obstructive Sleep Apnea-Hypopnea Syndrome, moderate, with good treatment compliance and good apnea control. On CPAP therapy, the patient has better sleep quality and is more rested overall. He states the humidifier on his Dreamstation 2 will shut off randomly. He states if he turns the machine off and then on it will start working again. I advised him to followup with [employer] to see if they can repair the humidifier or on his replacement device. He voice understanding and agreement with plan. We will follow up again next year. Patient's apnea severity and rationale for treatment to reduce apnea, improve sleep quality and reduce cardiovascular and cerebrovascular events was reviewed. I also reviewed the benefit of consistent device use of CPAP for hypertension. 2. Obesity, unspecified. Currently patients BMI is 30.7. Obesity increases the risk of apnea, CPAP pressure requirements and overall health risks especially cardiovascular and diabetes. Thus patient is advised to lose weight. * Continue CPAP pressure at 10 cmH2O * Update supplies * Notify me if snoring with mask or feeling that the pressure is too much or too little * Attempt to lose weight * Call this office if any problems using CPAP * Return for follow up in 1 year, or sooner if concerns arise Counseling Topics: Spare mask, Weight loss health impact Visit Type: In Office Time Spent with Patient (minutes): 20 Provider Statement: I spent 100% of the Face to Face Visit with the patient with greater than 50% spent counseling the patient and coordination of care.
[2022-12-01 10:05] VITALS: BP 126/78; O2SAT 98
== END 2022-12-01 09:23 | disposition home or self-care (01) ==
LOC: SC 09:22
PROVIDERS: ATTEND Nurse Practitioner Family
DX: G47.33 Obstructive sleep apnea (adult) (pediatric) (principal); E66.9 Obesity, unspecified; Z68.30 Body mass index [BMI] 30.0-30.9, adult
CPT/HCPCS: 99213; G0463; 99212

== ENCOUNTER 2023-10-12 07:55 | Outpatient (CLI) | payer MEDICARE, BC ==
[2023-10-12 08:06] LABS: BASOPHILS % (AUTO) 0.4 %; EOSINOPHILS # (AUTO) 0.1 10^3/uL (0.0-0.7); EOSINOPHILS % (AUTO) 1.2 %; HCT - HEMATOCRIT 44.9 % (42.0-52.0); HGB - HEMOGLOBIN 14.6 g/dL (14.0-18.0); MEAN CORPUSCULAR HEMOGLOBIN 31.3 pg (27.0-31.0); MEAN CORPUSCULAR HGB CONC 32.5 g/dL (32.0-36.0); MEAN CORPUSCULAR VOLUME 96.1 fL (80.0-94.0); MEAN PLATELET VOLUME 9.2 fL (7.4-11.4); MONOCYTES # (AUTO) 0.4 10^3/uL (0.0-1.0); NEUTROPHILS # (AUTO) 2.4 10^3/uL (1.5-6.6); NEUTROPHILS % (AUTO) 49.2 %; PLT - PLATELET COUNT 213 10^3/uL (130-450); RED BLOOD COUNT 4.67 10^6/uL (4.70-6.10); RED CELL DISTRIBUTION WIDTH 12.2 % (12.0-15.0); WHITE BLOOD COUNT 4.9 x10^3/uL (4.8-10.8)
[2023-10-12 08:23] LABS: ALBUMIN 4.7 g/dL (3.2-5.5); ALBUMIN/GLOBULIN RATIO 1.8 (1.0-2.2); ALKALINE PHOSPHATASE 85 IU/L (42-121); ALT ALANINE AMINOTRANSFERASE 28 IU/L (10-60); AST ASPARTATE AMINOTRANSFERASE 25 IU/L (10-42); BILIRUBIN,TOTAL 0.7 mg/dL (0.2-1.0); BUN - BLOOD UREA NITROGEN 15 mg/dL (6-20); CALCIUM 9.7 mg/dL (8.5-10.3); CARBON DIOXIDE - CO2 30 mmol/L (21-32); CHLORIDE 103 mmol/L (101-111); CHOL/HDL RATIO 2.5 (<5.0); CHOLESTEROL 123 mg/dL; CREATININE 0.9 mg/dL (0.6-1.3); GFR - MDRD 84 (>89); GLUCOSE 117 mg/dL (74-104); HDL CHOLESTEROL 50 mg/dL; LDL CHOLESTEROL,CALCULATED 54 mg/dL; LDL/HDL RATIO 1.1 (<3.6); POTASSIUM 4.2 mmol/L (3.5-4.5); SODIUM 137 mmol/L (135-145); TOTAL PROTEIN 7.3 g/dL (6.4-8.9); TRIGLYCERIDES 95 mg/dL (48-352); VLDL CHOLESTEROL 19 mg/dL
[2023-10-12 08:35] LABS: THYROID STIMULATING HORMONE 2.11 uIU/mL (0.34-5.60)
== END 2023-10-12 07:56 | disposition home or self-care (01) ==
LOC: LAB 07:55
PROVIDERS: ATTEND Family Medicine
DX: I10 Essential (primary) hypertension (principal); Z12.5 Encounter for screening for malignant neoplasm of prostate; K52.9 Noninfective gastroenteritis and colitis, unspecified; E78.5 Hyperlipidemia, unspecified; L40.9 Psoriasis, unspecified; G47.33 Obstructive sleep apnea (adult) (pediatric)
CPT/HCPCS: 36415; 80053; 80061; 84443; 85025; G0103; 83721; 84153

== ENCOUNTER 2023-12-12 12:08 | Outpatient (CLI) | payer MEDICARE, BC ==
--- NOTE | 2023-12-13 21:37 | SLEEP CARE CONSULTATION ---
Information from patient questionnaire entered by Lissette Hammond. I have reviewed and concur with the information entered by Lissette Hammond. This document represents the service I personally performed and the decisions made by me, Valentin Talbert MD, [facility]. History of Present Illness Service Date and Time: 12/12/2023 1208 Previous diagnosis: Moderate, Obstructive Sleep Apnea-Hypopnea Syndrome AHI: 28.6 (in 2016) Reason for follow up: annual (Last seen 11/2022) Equipment type: CPAP (DREAMSTATION 2, s/u 08/2016) Equipment obtained from: [facility] (getting supplies as needed) Mask style: Full face [facility] Type of Sleep Study: Polysomnography HPI additional information: Mr. Matthews was diagnosed with moderate obstructive sleep apnea-hypopnea syndrome and was seen today via video telemedicine ([facility]) for follow up of CPAP therapy. The patient purchased the device from [facility] and was fitted with a full face mask. He uses the [employer] DreamStation 2 autoCPAP nightly and all through the night. The compliance report shows that he uses the device 180 nights out of the past 180 nights, averaging 7.9 hours a night. He complains of no particular problem with the device such as soreness on the face, dry nose, epistaxis, nasal congestion or headache. He thinks that the pressure of 10 cmH2 O is comfortable. On the CPAP therapy he notices improvement in his sleep bee lity, and that he wakes up feeling fresher in the morning and more awake/alert during the day. His notices no snore at all. The average residual AHI is 2.3; and average time in large leak per day is 9 seconds a night. Sleep Study - Results Prior [facility]: Yes [facility] Compliance Data - Data Reviewed with Patient Average duration of nightly device use: 7 h 52 min Compliance rate %: 100 Current pressure setting (cmH2O): 10 Humidity settin Heated hose settin Average residual AHI: 2.5 Average large leak: 5 sec Subjective Patient concerns: reports: mask leak noise (Occasionally), dry mouth, nose, throat Current pressure setting perceived as: comfortable Initial Hyndman Sleepiness Scale score: 8 (in 2017) Current Hyndman Sleepiness Scale score: 5 (12/12/23) Allergies and Home Medications Drug allergies reviewed: Yes Home medication list reviewed: Yes Allergy and home medication list: Allergies No Known Drug Allergies Allergy (Verified 12/01/22 09:31) Review of Systems Review of systems same as previous: Yes Physical Exam Vital signs obtained and entered by: N/A Height: 6 ft 5 in Weight: 254 lb 15.786 oz Body Mass Index: 30.2 BMI Classification: Obese Impression and Plan IMPRESSION: 1. Obstructive Sleep Apnea-Hypopnea Syndrome, moderate (AHI = 28.6) with the patient continuing to do well on nasal CPAP therapy. He has excellent compliance and significant clinical benefits. The current pressure appears effective and comfortable. Overall, he is very satisfied with treatment and plans to continue with it long-term. No adjustment is necessary today. Because the CPAP is now older than the useful life of 5 years, I will order the patient a new one and make it an autoCPAP set between 6 and 10 cmH2O. PLAN: 1. Continue with autoCPAP set at 10 cm H2O. 2. Prescription made for an autoCPAP, heated humidifier, and related supplies. 3. Try a nasal mask 4. Return in two months to check compliance and efficacy. Prescriptions: Auto CPAP Follow up with Sleep Care in: 1-2 months Visit Type: Telehealth Video Patient Location: Home Location of Provider: Office Patient agrees and consents to this telehealth visit type: Yes Patient agrees to have their insurance billed: Yes Time Spent with Patient (minutes): 15 Provider Statement: I spent 100% of the Telehealth Video Call with the patient with greater than 50% spent counseling the patient and coordination of care.
== END 2023-12-12 12:09 | disposition home or self-care (01) ==
LOC: SC 12:08
PROVIDERS: ATTEND Internal Medicine Pulmonary Disease
DX: G47.33 Obstructive sleep apnea (adult) (pediatric) (principal); E66.9 Obesity, unspecified; Z68.30 Body mass index [BMI] 30.0-30.9, adult

== ENCOUNTER 2024-01-11 15:51 | Outpatient (CLI) | payer MEDICARE, BC ==
--- NOTE | 2024-01-12 16:03 | XRAY Report ---
PROCEDURE: Foot 3+V RT (Weight Bearing) INDICATIONS: RIGHT FOOT PAIN TECHNIQUE: 3 views of the foot were acquired. COMPARISON: None. FINDINGS: Bones: No fractures or dislocations. No suspicious bony lesions. Soft tissues: No tibiotalar joint effusion. Achilles tendon appears normal. IMPRESSION: Small calcaneal spur. Otherwise unremarkable radiographs Reviewed by: Pedro Grullon MD on 01/12/2024 3:01 PM ZAKIYA Approved by: Pedro Grullon MD on 01/12/2024 3:01 PM AKLAI Station ID: [id number]
== END 2024-01-11 15:52 | disposition home or self-care (01) ==
LOC: DI 15:51
PROVIDERS: ATTEND Podiatrist
DX: M77.31 Calcaneal spur, right foot (principal)